=== PATIENT | female | born 2000 | race Caucasian/White ===

== ENCOUNTER 2021-09-27 22:03 | Emergency (ER) | payer OTHER ==
[~2021-09-27 22:03] MED LIST: OMEPRAZOLE20 MG PO; PRENATAL VITAM1 EAC3 PO; TRANDATE 200 M200 MG PO; TRANDATE 300 M300 MG PO
[2021-09-27] MEDS ORDERED: ARTIFICIAL TEAR15 M6 OP (22:34)
[2021-09-27] MEDS ORDERED: PREDNISONE 50 M50 MG PO (22:34)
[2021-09-27] MEDS ORDERED: VALACYCLOVIR1000 MG PO (22:34)
[2021-09-27 22:52] LABS: HEMOGLOBIN 13.2 gm/dl (12.3-15.3); RED BLOOD COUNT 4.44 M/UL (4.00-5.10); WHITE BLOOD COUNT 11.8 K/UL (4.5-11.0)
[2021-09-27 23:11] LABS: BUN/CREATININE RATIO 20 (0-10)
== END 2021-09-27 23:15 | disposition home or self-care (01) ==
LOC: ER1 22:03
PROVIDERS: Emergency Medicine
DX: G51.0 Bell's palsy (principal)
CPT/HCPCS: 70450; 80053; 84703; 85025; 99284